=== PATIENT | male | born 1965 | race Caucasian/White ===

== ENCOUNTER 2016-07-15 21:24 | Observation (INO) | payer OTHER ==
[~2016-07-15] VITALS: Ht 180.3 cm; Wt 79.2 kg
[~2016-07-15 21:24] MED LIST: ALDACTONE25 MG PO; ALEVE LIQUID G220 MG PO; ALLEGRA ALLERG180 MG PO; AMIODARONE HCL200 MG PO; ARIXTRA2.5 MG/0.5 SC; ASPIR-LOW81 MG PO; BENADRYL ALLERG25 MG PO; BENADRYL25 MG PO; COLACE100 MG PO; COUMADIN10 MG PO; COUMADIN5 MG PO; COUMADIN6 MG PO; COUMADIN7.5 MG PO; CYCLOBENZAPRINE10 MG PO; DIGOXIN125 MCG PO; EFFEXOR37.5 MG PO; ENOXAPARIN80 MG/0.8 SC; FIBER GUMMIES1 EACH PO; FIBER500 MG PO; FISH OIL 1,0001 EAC8 PO; FLEXERIL10 MG PO; FONDAPARIN7.5 MG/0.6 SC; FUROSEMIDE40 MG PO; GUMMI BEAR MUL1 EACH PO; HAWTHORN500 MG PO; LASIX20 MG PO; LASIX80 MG PO; LEXAPRO10 MG PO; LIDOCAINE700 MG TD; LIDODERM 5% P1 PATCH TD; LISINOPRIL10 MG PO; LISINOPRIL2.5 MG PO; LOPRESSOR25 MG PO; LORAZEPAM0.5 MG PO; LOVENOX80 MG/0.8 SC; MELATIN3 MG PO; MELATONIN5 M1 PO; METOPROLOL SUCC25 MG PO; MILRINONE IV; MILRINONE-20 MG/100 IV; NITROSTAT0.4 MG SL; ONE DAILY TABL1 EAC1 PO; PERCOCET 5/31 TABLET PO; PERFORM PAIN RE89 ML TP; PRINIVIL5 MG PO; PROVENTIL HFA6.7 GM IH; SPIRIVA RESPIMAT4 G1 IH; SPIRIVA RESPIMAT4 GM IH; SPIRONOLACTONE25 MG PO; TOPROL XL25 MG PO; TYLENOL REGULA325 MG PO; WARFARIN SODIU7.5 MG PO; WARFARIN SODIUM5 MG PO
[2016-07-15 21:47] LABS: HEMATOCRIT 37.7 % (38.0-50.0); MCH 29.6 PG (29.0-34.0); MCHC 33.2 G/DL (30.0-36.0); MCV 89.1 FL (86-99); MEAN PLAT.VOLUME 11.7 uM^3 (9.0-12.4); PLATELET COUNT 116 K/uL (156-360); RBC DIS.WIDTH-CV 14.6 % (11.8-14.6); RBC DIS.WIDTH-SD 47.8 % (39-53); RED BLOOD COUNT 4.23 M/uL (4.00-5.50); WHITE BLOOD COUNT 5.9 K/uL (4.1-10.2)
[2016-07-15 21:59] LABS: CHLORIDE 105 mEq/L (99-109); POTASSIUM 3.9 mEq/L (3.7-5.4); SODIUM 136 mEq/L (136-147)
[2016-07-15 22:00] LABS: GLUCOSE 84 mg/dL (70-99)
[2016-07-15 22:02] LABS: ANION GAP 7 MEQ/L (2-14)
[2016-07-15 22:04] LABS: GFR ESTIMATE (CALCULATED) > 59 mL/min/
[2016-07-15 22:05] LABS: UREA NITROGEN (BUN) 14 mg/dL (9-23)
[2016-07-15 22:11] LABS: TROP-I INTERPRETATION NEGATIVE; TROPONIN-I 0.12 ng/mL (0.0-0.30)
[2016-07-15 23:00] LABS: D-DIMER ELISA 0.29 mg/L FEU (< 0.57); INTER. NORMALIZED RATIO 1.2; PROTHROMBIN TIME 12.1 (9.2-11.2); PTT 59.8 (25-32)
[2016-07-15 23:02] LABS: DIGOXIN < 0.3 ng/mL (0.8-2.0)
[2016-07-15] MEDS ORDERED: COUMADIN1 MG PO (23:48)
[2016-07-15] MEDS ORDERED: LISINOPRIL2.5 MG PO (23:50)
[2016-07-16 01:29] VITALS: BP 97/52
[2016-07-16 04:00] VITALS: BP 102/57
[2016-07-16 07:19] VITALS: BP 107/58
[2016-07-16 07:20] LABS: INTER. NORMALIZED RATIO 1.2; PROTHROMBIN TIME 12.1 (9.2-11.2)
[2016-07-16 07:53] LABS: TROP-I INTERPRETATION NEGATIVE; TROPONIN-I 0.11 ng/mL (0.0-0.30)
[2016-07-16 11:47] VITALS: BP 99/55
[2016-07-16] MEDS ORDERED: COUMADIN4 MG PO (13:31)
[2016-07-16 13:44] LABS: TROP-I INTERPRETATION NEGATIVE; TROPONIN-I 0.12 ng/mL (0.0-0.30)
== END 2016-07-16 15:24 | disposition home or self-care (01) ==
LOC: EME 21:24 → EDOF 07-16 00:13 → 5WEST 07-16 01:20
PROVIDERS: Hospitalist; Nurse Practitioner Adult Health
DX: R07.89 Other chest pain (principal); I48.0 Paroxysmal atrial fibrillation; I50.22 Chronic systolic (congestive) heart failure; D68.61 Antiphospholipid syndrome; I47.2 Ventricular tachycardia; I42.9 Cardiomyopathy, unspecified; R60.9 Edema, unspecified; F41.9 Anxiety disorder, unspecified; Z86.718 Personal history of other venous thrombosis and embolism; Z79.01 Long term (current) use of anticoagulants; Z86.711 Personal history of pulmonary embolism
CPT/HCPCS: 71020; 80048; 80162; 84484; 85027; 85379; 85610; 85730; 93005; 93970; 99281; 99285; G0378; J2270; J2765

== ENCOUNTER 2016-07-19 18:18 | Emergency (ER) | payer OTHER ==
[~2016-07-19] VITALS: Ht 180.3 cm; Wt 77.9 kg
[~2016-07-19 18:18] MED LIST changes: +COUMADIN1 MG PO; +COUMADIN4 MG PO
[2016-07-19 18:58] LABS: HEMATOCRIT 43.1 % (38.0-50.0); MCH 29.8 PG (29.0-34.0); MCHC 33.2 G/DL (30.0-36.0); MCV 89.8 FL (86-99); MEAN PLAT.VOLUME 11.3 uM^3 (9.0-12.4); PLATELET COUNT 113 K/uL (156-360); RBC DIS.WIDTH-CV 14.6 % (11.8-14.6); RBC DIS.WIDTH-SD 48.4 % (39-53); WHITE BLOOD COUNT 4.9 K/uL (4.1-10.2)
[2016-07-19 19:08] LABS: CHLORIDE 103 mEq/L (99-109); POTASSIUM 3.6 mEq/L (3.7-5.4); SODIUM 138 mEq/L (136-147)
[2016-07-19 19:09] LABS: GLUCOSE 85 mg/dL (70-99)
[2016-07-19 19:11] LABS: ANION GAP 8 MEQ/L (2-14)
[2016-07-19 19:13] LABS: GFR ESTIMATE (CALCULATED) > 59 mL/min/
[2016-07-19 19:14] LABS: UREA NITROGEN (BUN) 12 mg/dL (9-23)
[2016-07-19 19:17] LABS: TROP-I INTERPRETATION NEGATIVE; TROPONIN-I 0.12 ng/mL (0.0-0.30)
[2016-07-19] MEDS ORDERED: NORCO 5/3251 TABLET PO (21:25)
[2016-07-19 21:39] VITALS: BP 139/87
== END 2016-07-19 21:40 | disposition home or self-care (01) ==
LOC: EXP 18:18 → EME 18:18 → EXP 21:40
DX: R07.9 Chest pain, unspecified (principal); Z95.810 Presence of automatic (implantable) cardiac defibrillator; Z79.01 Long term (current) use of anticoagulants; J44.9 Chronic obstructive pulmonary disease, unspecified; I10 Essential (primary) hypertension; I25.2 Old myocardial infarction; F17.200 Nicotine dependence, unspecified, uncomplicated
CPT/HCPCS: 71020; 80048; 84484; 85027; 93005; 99281; 99284

== ENCOUNTER 2016-07-26 22:12 | Observation (INO) | payer OTHER ==
[~2016-07-26] VITALS: Ht 180.3 cm; Wt 77.6 kg
[~2016-07-26 22:12] MED LIST changes: +NORCO 5/3251 TABLET PO
[2016-07-26 23:43] LABS: HEMATOCRIT 42.6 % (38.0-50.0); MCH 29.7 PG (29.0-34.0); MCHC 33.1 G/DL (30.0-36.0); MCV 89.7 FL (86-99); RBC DIS.WIDTH-CV 14.6 % (11.8-14.6); RBC DIS.WIDTH-SD 48.1 % (39-53); RED BLOOD COUNT 4.75 M/uL (4.00-5.50); WHITE BLOOD COUNT 7.4 K/uL (4.1-10.2)
[2016-07-26 23:49] LABS: CHLORIDE 99 mEq/L (99-109); POTASSIUM 3.8 mEq/L (3.7-5.4); SODIUM 134 mEq/L (136-147)
[2016-07-26 23:50] LABS: GLUCOSE 91 mg/dL (70-99)
[2016-07-26 23:52] LABS: ANION GAP 11 MEQ/L (2-14)
[2016-07-26 23:54] LABS: GFR ESTIMATE (CALCULATED) > 59 mL/min/
[2016-07-26 23:55] LABS: UREA NITROGEN (BUN) 20 mg/dL (9-23)
[2016-07-26 23:57] LABS: TROP-I INTERPRETATION NEGATIVE; TROPONIN-I 0.12 ng/mL (0.0-0.30)
[2016-07-27 00:28] LABS: MEAN PLAT.VOLUME 12.4 uM^3 (9.0-12.4); PLAT.SUFFICIENCY ADEQUATE; PLATELET COUNT 125 K/uL (156-360)
[2016-07-27 02:39] LABS: INTER. NORMALIZED RATIO 2.8; PROTHROMBIN TIME 29.7 (9.2-11.2); PTT 67.5 (25-32)
[2016-07-27 07:26] VITALS: BP 97/55
[2016-07-27 07:31] LABS: TROP-I INTERPRETATION NEGATIVE; TROPONIN-I 0.11 ng/mL (0.0-0.30)
[2016-07-27] MEDS ORDERED: TOPROL XL25 MG PO (09:38)
[2016-07-27] MEDS ORDERED: LISINOPRIL5 MG PO (09:41)
[2016-07-27] MEDS ORDERED: COUMADIN5 MG PO (09:44)
[2016-07-27] MEDS ORDERED: JANTOVEN5 MG PO (09:45)
[2016-07-27 11:43] VITALS: BP 122/63
[2016-07-27 12:41] LABS: MCH 30.5 PG (29.0-34.0); MCHC 34.1 G/DL (30.0-36.0); MCV 89.6 FL (86-99); RBC DIS.WIDTH-CV 14.6 % (11.8-14.6); RBC DIS.WIDTH-SD 47.8 % (39-53); RED BLOOD COUNT 4.13 M/uL (4.00-5.50); WHITE BLOOD COUNT 4.5 K/uL (4.1-10.2)
[2016-07-27 12:44] LABS: TROP-I INTERPRETATION NEGATIVE; TROPONIN-I 0.11 ng/mL (0.0-0.30)
[2016-07-27 12:53] LABS: MEAN PLAT.VOLUME 12.1 uM^3 (9.0-12.4); PLATELET COUNT 113 K/uL (156-360)
[2016-07-27 13:00] LABS: ALKALINE PHOSPHATASE 43 IU/L (3-129); ANION GAP 6 MEQ/L (2-14); CHLORIDE 102 MEQ/L (99-109); GFR ESTIMATE (CALCULATED) > 59 mL/min/; GLUCOSE 86 mg/dL (70-99); POTASSIUM 3.8 MEQ/L (3.7-5.4); SAMPLE HEMOLYSIS CHECK 0; SAMPLE ICTERIC CHECK 0; SAMPLE LIPEMIA CHECK 0; SODIUM 136 MEQ/L (136-147); TOTAL BILIRUBIN 0.5 MG/DL (0.0-1.0); UREA NITROGEN (BUN) 16 mg/dL (9-23)
[2016-07-27 15:16] LABS: INTER. NORMALIZED RATIO 2.5; PROTHROMBIN TIME 25.8 (9.2-11.2)
== END 2016-07-27 16:44 | disposition left against medical advice (07) ==
LOC: EME 22:12 → 5WEST 07-27 04:07 → EDOF 07-27 04:07 → 5WEST 07-27 06:54
PROVIDERS: Emergency Medicine; Hospitalist; Internal Medicine
DX: R07.9 Chest pain, unspecified (principal); I42.9 Cardiomyopathy, unspecified; I48.0 Paroxysmal atrial fibrillation; I50.9 Heart failure, unspecified; Z95.810 Presence of automatic (implantable) cardiac defibrillator; Z79.01 Long term (current) use of anticoagulants; Z86.718 Personal history of other venous thrombosis and embolism; Z86.711 Personal history of pulmonary embolism; F41.9 Anxiety disorder, unspecified; F32.9 Major depressive disorder, single episode, unspecified; D68.61 Antiphospholipid syndrome; I50.22 Chronic systolic (congestive) heart failure; F39 Unspecified mood [affective] disorder
CPT/HCPCS: 70450; 71020; 80048; 80053; 83880; 84484; 85027; 85610; 85730; 93005; 99281; 99285; G0378; J7050

== ENCOUNTER 2016-07-30 10:36 | Day surgery (SDC) | payer OTHER ==
[~2016-07-30 10:36] MED LIST changes: +JANTOVEN5 MG PO; +LISINOPRIL5 MG PO
== END 2016-07-30 10:41 | disposition home or self-care (01) ==
LOC: CATH 10:36
DX: R07.9 Chest pain, unspecified (principal); I42.9 Cardiomyopathy, unspecified; Z53.9 Procedure and treatment not carried out, unspecified reason

== ENCOUNTER 2016-08-02 06:23 | Day surgery (SDC) | payer OTHER ==
[~2016-08-02] VITALS: Ht 181.6 cm; Wt 77.6 kg
[2016-08-02 07:20] LABS: INTER. NORMALIZED RATIO 1.6; PROTHROMBIN TIME 16.4 (9.2-11.2); PTT 56.9 (25-32)
== END 2016-08-02 13:30 | disposition home or self-care (01) ==
LOC: CATH 06:23
PROVIDERS: Internal Medicine Interventional Cardiology
DX: I42.0 Dilated cardiomyopathy (principal); Z95.810 Presence of automatic (implantable) cardiac defibrillator
CPT/HCPCS: 85610; 85730; C1769; C1887; J1644; J2250; J3010

== ENCOUNTER 2016-08-06 12:06 | Emergency (ER) | payer OTHER ==
[~2016-08-06] VITALS: Ht 180.3 cm; Wt 77.7 kg
[2016-08-06 13:44] LABS: HEMATOCRIT 39.4 % (38.0-50.0); MCH 29.6 PG (29.0-34.0); MCV 89.7 FL (86-99); MEAN PLAT.VOLUME 11.8 uM^3 (9.0-12.4); PLATELET COUNT 135 K/uL (156-360); RBC DIS.WIDTH-CV 14.9 % (11.8-14.6); RBC DIS.WIDTH-SD 48.8 % (39-53); RED BLOOD COUNT 4.39 M/uL (4.00-5.50); WHITE BLOOD COUNT 6.9 K/uL (4.1-10.2)
[2016-08-06 13:54] LABS: CHLORIDE 101 mEq/L (99-109); INTER. NORMALIZED RATIO 2.2; POTASSIUM 4.7 mEq/L (3.7-5.4); PROTHROMBIN TIME 22.6 (9.2-11.2); SODIUM 134 mEq/L (136-147)
[2016-08-06 13:55] LABS: GLUCOSE 87 mg/dL (70-99)
[2016-08-06 13:57] LABS: ANION GAP 4 MEQ/L (2-14)
[2016-08-06 13:59] LABS: GFR ESTIMATE (CALCULATED) > 59 mL/min/
[2016-08-06 14:00] LABS: UREA NITROGEN (BUN) 9 mg/dL (9-23)
[2016-08-06 14:05] LABS: TROP-I INTERPRETATION NEGATIVE; TROPONIN-I 0.12 ng/mL (0.0-0.30)
[2016-08-06 16:34] VITALS: BP 107/58
== END 2016-08-06 16:41 | disposition home or self-care (01) ==
LOC: EME 12:06
PROVIDERS: Emergency Medicine
DX: R07.89 Other chest pain (principal); I50.9 Heart failure, unspecified; M32.9 Systemic lupus erythematosus, unspecified; Z79.01 Long term (current) use of anticoagulants; Z88.8 Allergy status to other drugs, medicaments and biological substances; Z87.891 Personal history of nicotine dependence; Z95.810 Presence of automatic (implantable) cardiac defibrillator; Z95.0 Presence of cardiac pacemaker; Z86.718 Personal history of other venous thrombosis and embolism; Z86.711 Personal history of pulmonary embolism
CPT/HCPCS: 71010; 80048; 84484; 85027; 85610; 93005; 99281; 99285

== ENCOUNTER 2016-08-21 14:24 | Emergency (ER) | payer OTHER ==
[~2016-08-21] VITALS: Ht 180.3 cm; Wt 75.9 kg
[2016-08-21 15:32] LABS: HEMATOCRIT 42.7 % (38.0-50.0); MCH 29.8 PG (29.0-34.0); MCV 87.9 FL (86-99); MEAN PLAT.VOLUME 11.5 uM^3 (9.0-12.4); PLATELET COUNT 142 K/uL (156-360); RBC DIS.WIDTH-CV 15.2 % (11.8-14.6); RED BLOOD COUNT 4.86 M/uL (4.00-5.50); WHITE BLOOD COUNT 8.2 K/uL (4.1-10.2)
[2016-08-21 15:39] LABS: CHLORIDE 101 mEq/L (99-109); POTASSIUM 4.1 mEq/L (3.7-5.4); SODIUM 137 mEq/L (136-147)
[2016-08-21 15:41] LABS: GLUCOSE 100 mg/dL (70-99)
[2016-08-21 15:42] LABS: ANION GAP 7 MEQ/L (2-14)
[2016-08-21 15:45] LABS: INTER. NORMALIZED RATIO 2.6; PROTHROMBIN TIME 27.3 (9.2-11.2); PTT 73.4 (25-32)
[2016-08-21 15:45] LABS: GFR ESTIMATE (CALCULATED) > 59 mL/min/; UREA NITROGEN (BUN) 6 mg/dL (9-23)
[2016-08-21 16:02] LABS: TROP-I INTERPRETATION NEGATIVE; TROPONIN-I 0.17 ng/mL (0.0-0.30)
[2016-08-21 18:29] VITALS: BP 110/69
== END 2016-08-21 18:30 | disposition home or self-care (01) ==
LOC: EME 14:24
PROVIDERS: Physician Assistant
DX: E86.0 Dehydration (principal); R55 Syncope and collapse; I50.9 Heart failure, unspecified; F17.200 Nicotine dependence, unspecified, uncomplicated
CPT/HCPCS: 71020; 80048; 84484; 85027; 85610; 85730; 93005; 99281; 99285; J7030

== ENCOUNTER 2016-09-30 21:56 | Observation (INO) | payer OTHER ==
[~2016-09-30] VITALS: Ht 180.3 cm; Wt 77.1 kg
[~2016-09-30 21:56] MED LIST changes: -LISINOPRIL5 MG PO
[2016-09-30 22:39] LABS: HEMATOCRIT 33.9 % (38.0-50.0); MCH 29.7 PG (29.0-34.0); MCHC 33.3 G/DL (30.0-36.0); MCV 89.2 FL (86-99); MEAN PLAT.VOLUME 11.2 uM^3 (9.0-12.4); PLATELET COUNT 122 K/uL (156-360); RBC DIS.WIDTH-CV 15.8 % (11.8-14.6); WHITE BLOOD COUNT 6.2 K/uL (4.1-10.2)
[2016-09-30 22:50] LABS: CHLORIDE 105 mEq/L (99-109); POTASSIUM 3.7 mEq/L (3.7-5.4); SODIUM 139 mEq/L (136-147)
[2016-09-30 22:52] LABS: GLUCOSE 111 mg/dL (70-99)
[2016-09-30 22:53] LABS: ANION GAP 8 MEQ/L (2-14)
[2016-09-30 22:55] LABS: GFR ESTIMATE (CALCULATED) > 59 mL/min/
[2016-09-30 22:56] LABS: UREA NITROGEN (BUN) 16 mg/dL (9-23)
[2016-09-30 23:02] LABS: TROP-I INTERPRETATION NEGATIVE; TROPONIN-I 0.08 ng/mL (0.0-0.30)
[2016-09-30] MEDS ORDERED: ALPRAZOLAM0.5 MG PO (23:25)
[2016-09-30] MEDS ORDERED: FUROSEMIDE80 MG PO (23:25)
[2016-09-30] MEDS ORDERED: ONE-A-DAY ESSE1 EAC1 PO (23:26)
[2016-09-30] MEDS ORDERED: FLEXERIL10 MG PO (23:26)
[2016-10-01 00:46] LABS: INTER. NORMALIZED RATIO 1.5
[2016-10-01 01:03] LABS: PROTHROMBIN TIME 17.1 SEC (10.2-12.9)
[2016-10-01 02:45] VITALS: BP 107/59
[2016-10-01 06:54] LABS: INTER. NORMALIZED RATIO 1.6; PROTHROMBIN TIME 17.4 SEC (10.2-12.9)
[2016-10-01 07:42] VITALS: BP 101/56
[2016-10-01 11:35] VITALS: BP 109/55
[2016-10-01 11:59] LABS: TROP-I INTERPRETATION NEGATIVE; TROPONIN-I 0.12 ng/mL (0.0-0.30)
== END 2016-10-01 12:25 | disposition home or self-care (01) ==
LOC: EME → EDBD 21:56 → EDOF 23:23 → 4EAST 23:23 → EDOF 23:23 → ENRESERV 23:25 → ENPENDDIS 10-01 → ENRESERV 10-01 00:58 → 4EAST 10-01 02:42
PROVIDERS: Physician Assistant Medical
DX: R07.89 Other chest pain (principal); F43.8 Other reactions to severe stress; I50.22 Chronic systolic (congestive) heart failure; I42.8 Other cardiomyopathies; D68.61 Antiphospholipid syndrome; Z86.718 Personal history of other venous thrombosis and embolism; Z86.711 Personal history of pulmonary embolism; Z79.01 Long term (current) use of anticoagulants
CPT/HCPCS: 71020; 80048; 84484; 85027; 85610; 93005; 99281; 99285; G0378; J7040

== ENCOUNTER 2017-02-24 13:45 | Observation (INO) | payer OTHER ==
[~2017-02-24] VITALS: Ht 180.3 cm; Wt 79.0 kg
[~2017-02-24 13:45] MED LIST changes: +ALPRAZOLAM0.5 MG PO; +LASIX40 MG PO; -LASIX80 MG PO; +ONE-A-DAY ESSE1 EAC1 PO
[2017-02-24 14:29] LABS: HEMATOCRIT 42.1 % (38.0-50.0); MCHC 33.3 G/DL (30.0-36.0); MCV 90.3 FL (86-99); PLATELET COUNT 112 K/uL (156-360); RBC DIS.WIDTH-CV 15.5 % (11.8-14.6); RBC DIS.WIDTH-SD 51.5 % (39-53); RED BLOOD COUNT 4.66 M/uL (4.00-5.50); WHITE BLOOD COUNT 6.7 K/uL (4.1-10.2)
[2017-02-24 14:35] LABS: INTER. NORMALIZED RATIO 1.5
[2017-02-24 14:38] LABS: ALBUMIN 3.9 g/dL (3.2-4.8); CHLORIDE 103 mEq/L (99-109); POTASSIUM 4.3 mEq/L (3.7-5.4); SODIUM 136 mEq/L (136-147)
[2017-02-24 14:39] LABS: GLUCOSE 90 mg/dL (70-99); PTT 80.3 SEC (25-37); TOTAL PROTEIN 7.5 g/dL (6.4-8.3)
[2017-02-24 14:41] LABS: TOTAL BILIRUBIN 0.3 mg/dL (0.0-1.0)
[2017-02-24 14:42] LABS: ALKALINE PHOSPHATASE 42 IU/L (3-129)
[2017-02-24 14:43] LABS: CREATININE 1.2 mg/dL (0.6-1.3); GFR ESTIMATE (CALCULATED) > 59 mL/min/ (58.99-99999)
[2017-02-24 14:44] LABS: AST (GOT) 13 IU/L (2-34); UREA NITROGEN (BUN) 16 mg/dL (9-23)
[2017-02-24 14:46] LABS: ALT (GPT) 7 IU/L (3-49)
[2017-02-24 15:03] LABS: DIGOXIN < 0.3 ng/mL (0.8-2.0)
[2017-02-24 17:07] LABS: APPEARANCE CLEAR ((CLEAR)); BILIRUBIN NEGATIVE; BLOOD NEGATIVE; COLOR YELLOW ((YELLOW)); GLUCOSE (STRIP) NEGATIVE; KETONES NEGATIVE; LEUKOCYTES NEGATIVE; NITRITE NEGATIVE; PROTEIN (STRIP) NEGATIVE; SPECIFIC GRAVITY 1.015 (1.000-1.030)
[2017-02-24] MEDS ORDERED: WARFARIN SODIUM1 MG PO (18:01)
[2017-02-24 19:10] LABS: HEMATOCRIT 39.1 % (38.0-50.0); MCH 29.5 PG (29.0-34.0); MCHC 33.2 G/DL (30.0-36.0); MCV 88.7 FL (86-99); PLATELET COUNT 109 K/uL (156-360); RBC DIS.WIDTH-CV 15.4 % (11.8-14.6); RBC DIS.WIDTH-SD 50.2 % (39-53); RED BLOOD COUNT 4.41 M/uL (4.00-5.50); WHITE BLOOD COUNT 5.8 K/uL (4.1-10.2)
[2017-02-24 19:41] LABS: HDL CHOLESTEROL 29 MG/DL (Desirable>=40); LDL CHOLESTEROL 110 mg/dL (Desirable<100); NON-HDL CHOLESTEROL 130 mg/dL (Desirable<160); TOTAL CHOLESTEROL 159 mg/dL (Desirable<200); TRIGLYCERIDES 101 MG/DL (Normal: <150)
[2017-02-24 20:01] VITALS: BP 140/70
[2017-02-24 23:13] VITALS: BP 99/53
[2017-02-25 04:34] VITALS: BP 77/51
[2017-02-25 04:45] VITALS: BP 72/50
[2017-02-25 06:46] LABS: INTER. NORMALIZED RATIO 1.6
[2017-02-25 07:49] LABS: HEMOGLOBIN A1c (GLYCOHEMOGLOB) 5.6 % HGB (Below 5.7)
[2017-02-25 10:19] LABS: LYME DISEASE SEROLOGY SCREEN NEGATIVE (NEGATIVE)
[2017-02-25 11:15] VITALS: BP 102/58
[2017-02-25] MEDS ORDERED: LASIX40 MG PO (12:33)
[2017-02-25] MEDS ORDERED: LIPITOR20 MG PO (12:37)
== END 2017-02-25 14:44 | disposition home or self-care (01) ==
LOC: EME 13:45 → 5WEST 17:54 → EDOF 17:54 → ENRESERV 17:56 → 5WEST 19:46
PROVIDERS: Hospitalist; Physician Assistant
DX: I95.89 Other hypotension (principal); I13.0 Hypertensive heart and chronic kidney disease with heart failure and stage 1 through stage 4 chronic kidney disease, or unspecified chronic kidney disease; I50.22 Chronic systolic (congestive) heart failure; I50.84 End stage heart failure; N18.3 Chronic kidney disease, stage 3 (moderate); E78.5 Hyperlipidemia, unspecified; I42.9 Cardiomyopathy, unspecified; Z95.810 Presence of automatic (implantable) cardiac defibrillator; I47.2 Ventricular tachycardia; Z86.711 Personal history of pulmonary embolism; Z86.718 Personal history of other venous thrombosis and embolism; D68.61 Antiphospholipid syndrome; F17.200 Nicotine dependence, unspecified, uncomplicated; I25.10 Atherosclerotic heart disease of native coronary artery without angina pectoris; M32.9 Systemic lupus erythematosus, unspecified; F41.9 Anxiety disorder, unspecified; F32.9 Major depressive disorder, single episode, unspecified
CPT/HCPCS: 70450; 71046; 80053; 80061; 80162; 81003; 83036; 85027; 85610; 85730; 86618; 93005; 93306; 93880; G0378; J1650; J3420

== ENCOUNTER 2017-03-29 16:13 | Observation (INO) | payer OTHER ==
[~2017-03-29] VITALS: Ht 180.3 cm; Wt 76.7 kg
[~2017-03-29 16:13] MED LIST changes: +EFFEXOR XR37.5 MG PO; -EFFEXOR37.5 MG PO; +LIPITOR20 MG PO; +WARFARIN SODIUM1 MG PO
[2017-03-29 18:31] LABS: BASOPHIL (%) 0.3 % (0-1); EOSINOPHIL (%) 0.2 % (0-5); HEMATOCRIT 41.1 % (38.0-50.0); HEMOGLOBIN 13.8 G/DL (12.5-16.6); IMMATURE GRANULOCYTE (%) 0.2 % (0.0-0.7); LYMPHOCYTE (%) 10.5 % (15-42); LYMPHOCYTE COUNT 1.1 K/uL (1.0-2.8); MCH 29.3 PG (29.0-34.0); MCHC 33.6 G/DL (30.0-36.0); MCV 87.3 FL (86-99); MONOCYTE (%) 4.9 % (3-12); MONOCYTE COUNT 0.5 K/uL (0-0.8); NEUTROPHIL (%) 83.9 % (45-76); NEUTROPHIL COUNT 8.4 K/uL (1.8-6.4); PLATELET COUNT 104 K/uL (156-360); RBC DIS.WIDTH-CV 14.6 % (11.8-14.6); RBC DIS.WIDTH-SD 46.7 % (39-53); RED BLOOD COUNT 4.71 M/uL (4.00-5.50)
[2017-03-29 18:39] LABS: CHLORIDE 104 mEq/L (99-109); POTASSIUM 3.6 mEq/L (3.7-5.4); SODIUM 139 mEq/L (136-147)
[2017-03-29 18:40] LABS: GLUCOSE 90 mg/dL (70-99)
[2017-03-29 18:44] LABS: CREATININE 1.1 mg/dL (0.6-1.3); GFR ESTIMATE (CALCULATED) > 59 mL/min/ (58.99-99999)
[2017-03-29 18:45] LABS: UREA NITROGEN (BUN) 12 mg/dL (9-23)
[2017-03-29 18:51] LABS: TROP-I INTERPRETATION INDETERMINATE; TROPONIN-I 0.43 ng/mL (0.0-0.30)
[2017-03-29] MEDS ORDERED: LIPITOR20 MG PO (20:14)
[2017-03-29 21:56] LABS: INTER. NORMALIZED RATIO 1.6
[2017-03-29 23:17] VITALS: BP 122/77
[2017-03-30 04:13] VITALS: BP 128/76
[2017-03-30 05:36] LABS: HEMATOCRIT 41.1 % (38.0-50.0); HEMOGLOBIN 13.2 G/DL (12.5-16.6); MCH 28.3 PG (29.0-34.0); MCHC 32.1 G/DL (30.0-36.0); MCV 88.2 FL (86-99); RBC DIS.WIDTH-SD 48.4 % (39-53); RED BLOOD COUNT 4.66 M/uL (4.00-5.50); WHITE BLOOD COUNT 6.2 K/uL (4.1-10.2)
[2017-03-30 05:41] LABS: INTER. NORMALIZED RATIO 1.6
[2017-03-30 05:53] LABS: TROP-I INTERPRETATION POSITIVE; TROPONIN-I 1.42 ng/mL (0.0-0.30)
[2017-03-30 06:13] LABS: PLAT.SUFFICIENCY DECREASED; PLATELET COUNT 100 K/uL (156-360)
[2017-03-30 06:14] LABS: CHLORIDE 105 MEQ/L (99-109); CREATININE 1.1 MG/DL (0.6-1.3); GFR ESTIMATE (CALCULATED) > 59 mL/min/ (58.99-99999); GLUCOSE 95 mg/dL (70-99); SODIUM 139 MEQ/L (136-147); UREA NITROGEN (BUN) 11 mg/dL (9-23)
[2017-03-30 09:15] VITALS: BP 95/54
[2017-03-30 11:30] VITALS: BP 106/62
[2017-03-30] MEDS ORDERED: CORDARONE200 MG PO (13:02)
[2017-03-30] MEDS ORDERED: METOPROLOL SUCC25 MG PO (13:02)
[2017-03-30] MEDS ORDERED: ASPIR-LOW81 MG PO (13:03)
[2017-03-30] MEDS ORDERED: FAMOTIDINE20 MG PO (13:04)
[2017-03-30 14:00] LABS: TROP-I INTERPRETATION POSITIVE
== END 2017-03-30 13:55 | disposition home or self-care (01) ==
LOC: EME 16:13 → EDOF 20:42 → ENRESERV 20:43 → 4EAST 22:35
PROVIDERS: Emergency Medicine; Hospitalist
PROC: 4B02XTZ Measurement of Cardiac Defibrillator, External Approach (ICD-10-PCS; principal; 2017-03-29)
DX: I47.2 Ventricular tachycardia (principal); Z95.810 Presence of automatic (implantable) cardiac defibrillator; I42.9 Cardiomyopathy, unspecified; I50.9 Heart failure, unspecified; D68.61 Antiphospholipid syndrome; Z86.718 Personal history of other venous thrombosis and embolism; Z86.711 Personal history of pulmonary embolism; Z79.01 Long term (current) use of anticoagulants; D69.6 Thrombocytopenia, unspecified; I95.9 Hypotension, unspecified; Z96.649 Presence of unspecified artificial hip joint; F41.9 Anxiety disorder, unspecified; F32.9 Major depressive disorder, single episode, unspecified; Z88.8 Allergy status to other drugs, medicaments and biological substances
CPT/HCPCS: 80048; 83880; 84484; 85025; 85027; 85610; 93005; 99281; 99284; G0378

== ENCOUNTER 2017-07-02 23:11 | Emergency (ER) | payer OTHER ==
[~2017-07-02] VITALS: Ht 180.3 cm; Wt 78.6 kg
[~2017-07-02 23:11] MED LIST changes: +CORDARONE200 MG PO; +FAMOTIDINE20 MG PO
[2017-07-02 23:35] LABS: HEMATOCRIT 40.7 % (38.0-50.0); HEMOGLOBIN 13.7 G/DL (12.5-16.6); MCH 29.3 PG (29.0-34.0); MCHC 33.7 G/DL (30.0-36.0); MCV 87.2 FL (86-99); PLATELET COUNT 126 K/uL (156-360); RBC DIS.WIDTH-CV 16.4 % (11.8-14.6); RBC DIS.WIDTH-SD 52.3 % (39-53); RED BLOOD COUNT 4.67 M/uL (4.00-5.50)
[2017-07-02 23:46] LABS: ALBUMIN 3.8 g/dL (3.2-4.8); CHLORIDE 104 mEq/L (99-109); POTASSIUM 3.2 mEq/L (3.7-5.4); SODIUM 138 mEq/L (136-147)
[2017-07-02 23:49] LABS: GLUCOSE 125 mg/dL (70-99); TOTAL PROTEIN 7.4 g/dL (6.4-8.3)
[2017-07-02 23:51] LABS: TOTAL BILIRUBIN 0.4 mg/dL (0.0-1.0)
[2017-07-02 23:52] LABS: ALKALINE PHOSPHATASE 56 IU/L (3-129); CREATININE 1.3 mg/dL (0.6-1.3); GFR ESTIMATE (CALCULATED) > 59 mL/min/ (58.99-99999)
[2017-07-02 23:54] LABS: AST (GOT) 17 IU/L (2-34); UREA NITROGEN (BUN) 18 mg/dL (9-23)
[2017-07-02 23:55] LABS: ALT (GPT) 13 IU/L (3-49)
[2017-07-02 23:57] LABS: TROP-I INTERPRETATION NEGATIVE; TROPONIN-I 0.15 ng/mL (0.0-0.30)
[2017-07-03 07:43] LABS: TROP-I INTERPRETATION NEGATIVE; TROPONIN-I 0.17 ng/mL (0.0-0.30)
[2017-07-03 08:00] VITALS: BP 119/61
== END 2017-07-03 08:01 | disposition home or self-care (01) ==
LOC: EME 23:11
PROVIDERS: Emergency Medicine
DX: E86.0 Dehydration (principal); R55 Syncope and collapse; R00.1 Bradycardia, unspecified; I45.4 Nonspecific intraventricular block; R94.31 Abnormal electrocardiogram [ECG] [EKG]; I11.0 Hypertensive heart disease with heart failure; I50.84 End stage heart failure; I25.2 Old myocardial infarction; D68.61 Antiphospholipid syndrome; F41.9 Anxiety disorder, unspecified; F32.9 Major depressive disorder, single episode, unspecified; F17.200 Nicotine dependence, unspecified, uncomplicated; Z79.01 Long term (current) use of anticoagulants; Z95.810 Presence of automatic (implantable) cardiac defibrillator; Z86.79 Personal history of other diseases of the circulatory system; Z87.2 Personal history of diseases of the skin and subcutaneous tissue; Z85.9 Personal history of malignant neoplasm, unspecified; Z88.6 Allergy status to analgesic agent; Z88.8 Allergy status to other drugs, medicaments and biological substances
CPT/HCPCS: 71046; 80053; 83880; 84484; 85027; 93005; 99281; 99285; J7040